=== PATIENT | female | born 1960 | race Caucasian/White ===

== ENCOUNTER 2019-06-12 13:24 | Outpatient (CLI) | payer BC | END 2019-06-12 23:59 | disposition home or self-care (01) | LOC: CFH 13:24 | PROVIDERS: ATTEND Internal Medicine Cardiovascular Disease | DX: I35.8 Other nonrheumatic aortic valve disorders (principal); I47.1 Supraventricular tachycardia | CPT/HCPCS: 93306 ==

== ENCOUNTER 2020-01-25 12:06 | Outpatient (CLI) | payer BC | END 2020-01-25 23:59 | disposition home or self-care (01) | LOC: CFH 12:06 | PROVIDERS: ATTEND Family Medicine | DX: N63.23 Unspecified lump in the left breast, lower outer quadrant (principal) | CPT/HCPCS: 76642; 77066; G0279 ==

== ENCOUNTER → 2021-04-30 | Outpatient (CLI) | payer BC | END | disposition home or self-care (01) | LOC: CFH 09:14 | PROVIDERS: ATTEND Family Medicine | DX: Z12.31 Encounter for screening mammogram for malignant neoplasm of breast (principal) | CPT/HCPCS: 77063; 77067 ==